=== PATIENT | female | born 1965 | race Caucasian/White ===

== ENCOUNTER 2018-08-15 09:18 | Observation (INO) | payer BC ==
[~2018-08-15] VITALS: Ht 175.3 cm; Wt 59.4 kg
[~2018-08-15 09:18] MED LIST: AMOXICILLIN/CL875 MG PO; CIPROFLOXACN500 MG PO; MEDDOSEPAK PO; ZOFRAN4 MG/TAB PO
[2018-08-15 09:38] VITALS: BP 129/77
[2018-08-15 10:29] LABS: ANION GAP 11 (6-22 (CALC)); BUN 7 mg/dL (7-17); BUN/CREATININE RATIO 12 (12-20 (CALC)); CARBON DIOXIDE 27 mmol/l (22-30); CHLORIDE 105 mmol/l (95-108); CREATININE 0.6 mg/dL (0.5-1.0); GFR > 60 ML/MIN (>=60 (CALC)); GFR FOR AFR.AMER. > 60 ML/MIN (>=60 (CALC)); POTASSIUM 3.9 mmol/l (3.5-5.1); SODIUM 140 mmol/l (137-146)
[2018-08-15 10:34] LABS: HEMATOCRIT 41.4 % (37.0-47.0); HEMOGLOBIN 14.2 g/dl (12.0-16.0); IMMATURE GRANULOCYTES 0.3 % (0.0-5.0); MEAN CELL VOLUME 86.1 fL CALC (80.0-100.0); MEAN CORPUSCULAR HGB 29.5 pG CALC (26.0-32.0); MEAN CORPUSCULAR HGB CONC 34.3 g/L CALC (32.0-36.0); NEUT# 4.88 thou/uL (2.00-7.15); RED BLOOD COUNT 4.81 mill/uL (4.20-5.60); RED CELL DISTRI WIDTH 13.1 % (11.5-15.5)
[2018-08-15] MEDS ORDERED: METOPROL TAR25 MG PO (10:37)
--- NOTE | 2018-08-15 11:10 | NUR ---
PT ARRIVED ON UNIT @ 0930 DIRECT ADMIT, ALERT AND ORIENTED X 4, ORIENTED TO ROOM AND CALL HAWKINS. C/O NAUSEA AND VOMITTING AND POOR APPETITE FOR LAST 1-2 WEEKS. ORIENTED TO ROOM AND CALL HAWKINS, SETTLED IN BED, WILL CONTINUE TO MONITOR.
[2018-08-15 11:13] LABS: URINE BILIRUBIN - DIPSTICK NEGATIVE (NEGATIVE); URINE BLOOD DIPSTICK NEGATIVE (NEGATIVE); URINE COLOR YELLOW; URINE GLUCOSE - DIPSTICK NEGATIVE (NEGATIVE); URINE KETONE NEGATIVE (NEGATIVE); URINE LEUK ESTERASE NEGATIVE (NEGATIVE); URINE NITRITE - DIPSTICK NEGATIVE (Negative); URINE PH 6.5 (4.5-8.0); URINE PROTEIN - DIPSTICK NEGATIVE (NEG-TRACE); URINE SPECIFIC GRAVITY <=1.005; URINE UROBILINOGEN - DIPSTICK 0.2 E.U./dL (0.2)
[2018-08-15 11:25] LABS: URINE CLARITY CLEAR
--- NOTE | 2018-08-15 12:08 | NUR ---
Verified med rec. Patient did not have any questions on metoprolol and verbally understood.
[2018-08-15 15:10] VITALS: BP 115/70
--- NOTE | 2018-08-15 17:40 | NUR ---
DR BETTE DENTON WITH PT, DISCUSSED PLAN OF CARE, ADDRESSED CONCERN OF NAUSEA NOT BEING CONTROLLD WITH ZOFRAN AND WROTE NEW ORDERS.
[2018-08-15 20:00] VITALS: BP 112/71
--- NOTE | 2018-08-15 20:00 | NUR ---
PT RESTING IN BED TALKING ON PHONE. STATES PHENERGAN IS EFFECTIVE. CRACKERS PROVIDED. POC DISCUSSED. PT VOICED UNDERSTNDING. WILL CONTINUE TO MONITOR,
[2018-08-16 03:55] VITALS: BP 101/58
--- NOTE | 2018-08-16 04:17 | NUR ---
PT RESTING IN BED WITH EYES CLOSED.
[2018-08-16 05:16] VITALS: BP 101/58
[2018-08-16 05:37] LABS: HEMATOCRIT 37.3 % (37.0-47.0); HEMOGLOBIN 12.6 g/dl (12.0-16.0); IMMATURE GRANULOCYTES 0.1 % (0.0-5.0); MEAN CELL VOLUME 88.4 fL CALC (80.0-100.0); MEAN CORPUSCULAR HGB 29.9 pG CALC (26.0-32.0); MEAN CORPUSCULAR HGB CONC 33.8 g/L CALC (32.0-36.0); NEUT# 4.29 thou/uL (2.00-7.15); RED BLOOD COUNT 4.22 mill/uL (4.20-5.60); RED CELL DISTRI WIDTH 13.2 % (11.5-15.5)
[2018-08-16 05:50] LABS: ANION GAP 10 (6-22 (CALC)); BILIRUBIN, TOTAL 1.8 mg/dL (0.0-1.4); BUN 6 mg/dL (7-17); BUN/CREATININE RATIO 10 (12-20 (CALC)); CARBON DIOXIDE 27 mmol/l (22-30); CHLORIDE 109 mmol/l (95-108); CREATININE 0.6 mg/dL (0.5-1.0); GFR > 60 ML/MIN (>=60 (CALC)); GFR FOR AFR.AMER. > 60 ML/MIN (>=60 (CALC)); POTASSIUM 4.1 mmol/l (3.5-5.1); SGOT/AST 12 u/l (14-36); SODIUM 141 mmol/l (137-146)
[2018-08-16 05:51] LABS: ALBUMIN 3.2 g/dL (3.2-5.0); ALKALINE PHOSPHATASE 30 u/l (38-126); TOTAL PROTEIN 5.9 g/dL (6.3-8.2)
--- NOTE | 2018-08-16 07:05 | NUR ---
REPORT RECEIVED FROM MARTINEZ WALDROP; PT LAYING IN BED AWAKE, A/O, REQUESTING ATIVAN. NO S/S OF DISTRESS NOTED; WILL CONTINUE TO MONITOR.
--- NOTE | 2018-08-16 07:28 | NUR ---
ASSESSMENT COMPLETED; PT A/O X4; SPEECH'S CLEAR; LUNGS CLEAR; ABD SOFT, FLAT, NON DISTENDED; PT STATED LAST BM WAS WEDNESDAY; PULSES STRONG; SKIN INTACT; IVF INFUSING WITHOUT DIFFICULTY; CALL LIGHT IN REACH; WILL CONTINUE TO MONITOR.
--- NOTE | 2018-08-16 07:28 | NUR ---
MEDICATED PER EMAR.
[2018-08-16 07:30] VITALS: BP 118/73
--- NOTE | 2018-08-16 08:29 | NUR ---
PT MADE NPO FOR CT OF ABD; HELD AM MEDS DUE TO TEST; WILL CONTINUE TO MONITOR.
--- NOTE | 2018-08-16 08:29 | NUR ---
DR AMOS AT BEDSIDE TO DISCUSS POC
--- NOTE | 2018-08-16 11:55 | NUR ---
PT LAYING IN BED AWAKE WANTING TO KNOW WHEN US OF THE ABD WILL BE DONE. EXPLAINED HAS TO BE NPO FOR AT LEAST SIX HOURS. PT STATED SHE FEELS LIKE SHE'S JUST WASTING AWAY. WILL CONTINUE TO MONITOR.
[2018-08-16 15:36] VITALS: BP 108/68
--- NOTE | 2018-08-16 16:00 | NUR ---
PT APPEARS TO BE SLEEPING; RESP EVEN AND UNLABORED; CALL HAWKINS IN REACH.
[2018-08-16 19:03] VITALS: BP 108/69
--- NOTE | 2018-08-16 19:44 | NUR ---
REPORT RECIEVED FROM OFF GOING NURSE. PT RESTING IN BED. NO C/O PAIN OR DISTRESS NOTED. POC DISCUSSED. PT VOICED UNDERSTANDING.PT APPEARS DEPRESSED AND WITHDRAWN. PT HAS FIRST DOSE OF ZOLOFT SCHUDULED TONIGHT. BED IN LOWEST POSITION. CALL LIGHT WITHIN REACH. WILL MONITOR.
[2018-08-17 04:15] VITALS: BP 123/72
--- NOTE | 2018-08-17 04:37 | NUR ---
PT RESTING IN BED. EASILY AROUSED. VITALS WNL. NO PAIN OR DISTRESS NOTED. IV PATENT. BED IN LOWEST POSITION. CALL LIGHT IN REACH. WILL MONITOR.
[2018-08-17 05:15] LABS: HEMATOCRIT 37.7 % (37.0-47.0); HEMOGLOBIN 12.8 g/dl (12.0-16.0); IMMATURE GRANULOCYTES 0.3 % (0.0-5.0); MEAN CELL VOLUME 88.5 fL CALC (80.0-100.0); NEUT# 4.09 thou/uL (2.00-7.15); RED BLOOD COUNT 4.26 mill/uL (4.20-5.60)
[2018-08-17 05:27] LABS: ALBUMIN 3.1 g/dL (3.2-5.0); ALKALINE PHOSPHATASE 32 u/l (38-126); ANION GAP 9 (6-22 (CALC)); BILIRUBIN, TOTAL 1.6 mg/dL (0.0-1.4); BUN 6 mg/dL (7-17); BUN/CREATININE RATIO 9 (12-20 (CALC)); CARBON DIOXIDE 28 mmol/l (22-30); CHLORIDE 105 mmol/l (95-108); CREATININE 0.7 mg/dL (0.5-1.0); GFR > 60 ML/MIN (>=60 (CALC)); GFR FOR AFR.AMER. > 60 ML/MIN (>=60 (CALC)); POTASSIUM 4.2 mmol/l (3.5-5.1); SGOT/AST 12 u/l (14-36); SODIUM 139 mmol/l (137-146); TOTAL PROTEIN 5.8 g/dL (6.3-8.2)
--- NOTE | 2018-08-17 06:58 | NUR ---
REPORT RECEIVED FROM OFF SHIFT NURSE; PT LAYING IN BED AWAKE, ALERT; STATED SHE HAD A BM THIS AM; ADVISED HER TO WALK IN THE HALLS AND SIT UP IN RECLINER; PT AGREED.
[2018-08-17 08:30] VITALS: BP 124/73
--- NOTE | 2018-08-17 08:40 | NUR ---
PT AWAKE ALERT; PT SEEMS WITHDRAWN AND DESPRSSED; PT VOICED NO CONCERNS; PT ENCOURAGED TO EAT, SIT UP IN THE RECLINER AND WALK THE HALLS; IVF FLOWING WITHOUT DIFFICULTY, SITE APPEARS HEALTHY; POC DISCUSSED; WILL CONTINUE TO MONITOR.
--- NOTE | 2018-08-17 10:36 | NUR ---
PT APPEARS DEPRESSED, ENCOURAGED TO AMBULATE HALLWAYS AND SHE AMBULATED DOWN 2 HALLWAYS AND BACK TO ROOM. REPORTED SHE HAS NO APPETITE AND STATED SHE WISH SHE COULD ONLY HAVE AN APPETITE, DR. AMOS NOTIFIED AND GAVE ORDER TO CONTACT PHARMACY FOR APPROPRIATE AVAILABLE MED.
--- NOTE | 2018-08-17 12:04 | NUR ---
PT LAYING IN BED AWAKE, STATED THAT SHE'S NOT HUNGRY; PT ENCOURAGED TO EAT AND DRINK FLUIDS. IVF INFUSING AT 100CC/HR; NO S/S OF DISTRESS NOTED.
--- NOTE | 2018-08-17 15:46 | NUR ---
PT SITTING UP IN BED USING HER PHONE; PT STATED THAT SHE FEELS BETTER AND WANTING TO KNOW IF SHE WILL BE DC TODAY; PT REQ A BANANA OR AN APPLE; CHANGE DIET TO REG; KITCHEN WILL BRING UP AN APPLE FOR PT.
[2018-08-17 15:54] VITALS: BP 108/64
--- NOTE | 2018-08-17 19:00 | NUR ---
REPORT RECEIVED FROM TORITO BECERRIL AND SURJIT HENRIQUEZ. PT RESTING QUIETLY IN BED. NO S/S OF DISTRESS. CALL HAWKINS IN REACH. WILL CONTINUE TO MONITOR.
[2018-08-17 20:00] VITALS: BP 116/76
--- NOTE | 2018-08-17 20:20 | NUR ---
PT RESTING QUIETLY IN BED. ASSESMENT COMPLETED AT THIS TIME(SEE INTERVENTIONS) LUNG SOUNDS CLEAR, HEART SOUNDS NORMAL, HYPO ACTIVE BOWEL SOUNDS, NO SWELLING OR EDEMA NOTED. IV FLUIDS INFUSING WELL FREE FROM REDNESS OR EDEMA. PT VOICING NO COMPLAINTS AT THIS TIME. CALL HAWKINS IN REACH. WILL CONTINUR TO MONITOR.
--- NOTE | 2018-08-18 | NUR ---
PT APPEARS TO BE ASLEEP AT THIS TIME. NO S/S OF DISTRESS NOTED. IV INFUSING WELL CALL HAWKINS IN REACH. WILL CONTINUE TO MONITOR.
--- NOTE | 2018-08-18 | NUR ---
PT RESTING IN BED WATCHING TV. AT BEDSIDE. NO S/S OF DISTRESS. COUGH NOTED, NON PRODUCTIVE. CALL HAWKINS IN REACH. WILL CONTINUE TO MONITOR.
--- NOTE | 2018-08-18 04:00 | NUR ---
PT APPEARS ASLEEP AT THIS TIME. RESPIRATIONS EVEN AND UNLABORED. CALL HAWKINS IN REACH. WILL CONTINUE TO MONITOR.
--- NOTE | 2018-08-18 04:00 | NUR ---
PT RESTING IN BED WITH EYES CLOSED. FLUIDS HUNG ORDERED. NO S/S OF DISTRESS NOTED. CALL HAWKINS IN REACH. WILL CONTINUE TO MONITOR.
[2018-08-18 04:25] VITALS: BP 118/73
[2018-08-18 04:55] LABS: HEMATOCRIT 35.7 % (37.0-47.0); IMMATURE GRANULOCYTES 0.3 % (0.0-5.0); MEAN CELL VOLUME 88.1 fL CALC (80.0-100.0); MEAN CORPUSCULAR HGB 29.6 pG CALC (26.0-32.0); MEAN CORPUSCULAR HGB CONC 33.6 g/L CALC (32.0-36.0); NEUT# 4.5 thou/uL (2.00-7.15); RED BLOOD COUNT 4.05 mill/uL (4.20-5.60); RED CELL DISTRI WIDTH 12.6 % (11.5-15.5)
[2018-08-18 05:11] LABS: ALKALINE PHOSPHATASE 30 u/l (38-126); ANION GAP 7 (6-22 (CALC)); BILIRUBIN, TOTAL 1.2 mg/dL (0.0-1.4); BUN 7 mg/dL (7-17); BUN/CREATININE RATIO 11 (12-20 (CALC)); CARBON DIOXIDE 28 mmol/l (22-30); CHLORIDE 107 mmol/l (95-108); CREATININE 0.7 mg/dL (0.5-1.0); GFR > 60 ML/MIN (>=60 (CALC)); GFR FOR AFR.AMER. > 60 ML/MIN (>=60 (CALC)); POTASSIUM 3.7 mmol/l (3.5-5.1); SGOT/AST 13 u/l (14-36); SODIUM 138 mmol/l (137-146); TOTAL PROTEIN 5.5 g/dL (6.3-8.2)
--- NOTE | 2018-08-18 08:05 | NUR ---
PT LAYING IN BED COMPLAINED OF NAUSEA, MEDICATED PER EMAR; PT SEEMS WITHDRAWN AND TIRED; STATED SHE WANTS TO FEEL BETTER AND GO HOME TODAY; RESP EVEN AND UNLABORE; IVF FLOWING AT 120CC/HR; IV SITE APPEARS HEALTHY; POC DISCUSSED; PT VERBALIZED UNDERSTANDING;
--- NOTE | 2018-08-18 08:05 | NUR ---
DR AMOS AT BED SIDE TO DISCUSS POC.
[2018-08-18 08:15] VITALS: BP 123/71
[2018-08-18 09:45] VITALS: BP 123/71
--- NOTE | 2018-08-18 10:06 | NUR ---
WELDING PROCESS ENGINEER BROUGHT BETTE JAY TO PT.
--- NOTE | 2018-08-18 11:53 | NUR ---
PT SITTING UP IN BED EATING LUNCH; REQ IV STOPPED SO SHE CAN TAKE A SHOWER AFTER LUNCH; NO S/S OF DISTRESS NOTED; VOICED NO CONCERNS.
[2018-08-18] MEDS ORDERED: PROTONIX40 MG PO (12:32)
[2018-08-18] MEDS ORDERED: ZOFRAN ODT4 MG PO (12:33)
[2018-08-18] MEDS ORDERED: ZOLOFT50 MG PO (12:34)
[2018-08-18] MEDS ORDERED: ATIVAN0.5 MG PO (12:34)
--- NOTE | 2018-08-18 15:07 | NUR ---
Discharge instructions given. Patient verbalizes understanding of same. Discharged in good condition via Wheelchair to Home with spouse. All belongings sent with pt.
--- NOTE | 2018-08-19 15:24 | NUR ---
PT CALLS POST DISCHARGE (D/C'D HOME ON Wednesday08/18/18) REQUESTING RETURN TO WORK NOTE, CALL INTO AT THIS TIME WITH VERBAL ORDER FOR RETURN TO WORK ON WEDNESDAY WITH NO RESTRICTIONS.
== END 2018-08-18 15:02 | disposition home or self-care (01) | DRG 641 ==
LOC: MS2 09:18
PROVIDERS: ADMIT Internal Medicine Geriatric Medicine; ATTEND Internal Medicine Geriatric Medicine
DX: E86.0 Dehydration (principal); R11.2 Nausea with vomiting, unspecified; R10.9 Unspecified abdominal pain; F41.1 Generalized anxiety disorder; E80.6 Other disorders of bilirubin metabolism; I48.91 Unspecified atrial fibrillation; K21.9 Gastro-esophageal reflux disease without esophagitis; F32.9 Major depressive disorder, single episode, unspecified; M19.90 Unspecified osteoarthritis, unspecified site; Z87.11 Personal history of peptic ulcer disease
CPT/HCPCS: G0378; G0379; S0164

== ENCOUNTER 2018-08-26 09:12 | Day surgery (SDC) | payer BC ==
[~2018-08-26 09:12] MED LIST changes: +ATIVAN0.5 MG PO; +METOPROL TAR25 MG PO; +PROTONIX40 MG PO; +ZOFRAN ODT4 MG PO; +ZOLOFT50 MG PO
[2018-08-26 11:23] VITALS: BP 122/72
== END 2018-08-26 11:49 | disposition home or self-care (01) | DRG 392 ==
LOC: ENDO 09:12 → ORM 12:10 → ENDO 12:10 → ORM 12:25
PROVIDERS: ATTEND Internal Medicine Gastroenterology
PROC: 0DB68ZX Excision of Stomach, Via Natural or Artificial Opening Endoscopic, Diagnostic (ICD-10-PCS; principal; 2018-08-26)
PROC: 0DB78ZX Excision of Stomach, Pylorus, Via Natural or Artificial Opening Endoscopic, Diagnostic (ICD-10-PCS; 2018-08-26)
DX: K29.50 Unspecified chronic gastritis without bleeding (principal); K31.7 Polyp of stomach and duodenum; K21.9 Gastro-esophageal reflux disease without esophagitis; Q40.2 Other specified congenital malformations of stomach; Q40.8 Other specified congenital malformations of upper alimentary tract; I10 Essential (primary) hypertension; Z80.0 Family history of malignant neoplasm of digestive organs; Z86.010 Personal history of colon polyps